=== PATIENT | male | born 1950 | race Caucasian/White ===

== ENCOUNTER → 2017-01-12 | Day surgery (SDC) | payer MEDICARE ==
[~2017-01-12] VITALS: Ht 175.3 cm; Wt 82.0 kg
[~2017-01-12] MED LIST: 0.9% Sodium Chloride 1,000 ML IV PRN; 0.9% Sodium Chloride 1,000 ML IV SCH; ALBU8.5H2 INHALATION; ASPI-973 PO; ATOR80TA PO; NAPR500T5 PO; SCOP1PAT TD; Sodium Chloride LOK Flush 10 mL Syringe IV PRN; UBID30CA20 PO; fentaNYL-PF 50 mCg/mL 2 mL Inj IVPUSH PRN; fentaNYL-PF 50 mCg/mL 2 mL Inj ONE
[2017-01-12 12:12] VITALS: BP 136/91; PULSE 84; RESP 14; O2SAT 99
[2017-01-12 14:09] VITALS: BP 109/59; PULSE 62; RESP 14; O2SAT 96
--- NOTE | 2017-01-12 14:13 | ENDO ---
[address] [address] ENDOSCOPY PROCEDURE PATIENT: DANIEL DAVIES : 1950 MR#: [id number] ADMIT: 01/12/2017 JOB ID: [id number] PRIMARY PROVIDER: Robin Mcclellan MD. PROCEDURE: Colonoscopy with hot snare polypectomy. INDICATIONS: A 66-year-old male with a history of colon polyps returning for surveillance. EQUIPMENT: [employer]. SEDATION: 4 mg Versed, 100 mcg fentanyl. COMPLICATIONS: None identified. BOWEL PREPARATION: Fair. Adequate exam. PROCEDURE INFORMATION: After the risks and benefits were explained, written and verbal informed consent was obtained, the patient was brought into the endoscopy suite and placed into the left lateral decubitus position. Sedation was achieved as above. Digital rectal examination accomplished. Mild internal/external nonbleeding, nonthrombosed hemorrhoids noted. The scope was introduced into the rectum and advanced under direct visualization to the level of the cecum, as identified by the appendiceal orifice and ileocecal valve. The scope was slowly withdrawn to carefully examine the mucosa for any defects or lesions. Multiple direct views were made through the dentate line for exclusion of pathology. The colon was decompressed. The scope removed from the patient who tolerated the procedure well. FINDINGS: Throughout the colon, there were nine polyps seen and removed by way of hot snare. These ranged in size from 5 mm up to about 8 or 9 mm. They were submitted as "colon polyps." ENDOSCOPIC DIAGNOSIS: 1. Multiple colon polyps. 2. Hemorrhoids. RECOMMENDATIONS: 1. Await histopathology. 2. Repeat colonoscopy in three years.
[2017-01-12 14:16] VITALS: BP 137/89; PULSE 69; RESP 14; O2SAT 96
--- NOTE | 2017-01-14 11:37 | PATH ---
SURGICAL PATHOLOGY Attending Physician:Iva Esqueda CASE STATUS: Signed Out PATIENT NAME: DANIEL DAVIES PID: [id number] : 1950 DATE COLLECTED:01/12/2017 00:00 SPECIMEN: Colon, Polyp CLINICAL HISTORY: 1). SIGMOID POLYPS X9 FINAL DIAGNOSIS: 1.SIGMOID POLYPS: TUBULAR ADENOMA, MULTIPLE FRAGMENTS. HYPERPLASTIC POLYP, TWO FRAGMENTS. NINE POLYPS REMOVED. ICD10 D12.5 K63.5 GROSS DESCRIPTION: The specimen is received in one formalin filled container labeled with the patient's name, sublabeled "sigmoid polyps X9" and consists of multiple portions of tissue which aggregate to 1.2 1.0 x 0.3 CM. The specimen is entirely submitted in one cassette. 01/13/2017DC MICRO DESCRIPTION: See diagnosis. ICD-9 CODES: CPT CODES: 1: 35218 Electronically Signed Out Jacki Keller MD [facility] [address], [place] [address] Technical component performed at [facility], [address] [place] [address] Ave[address], [place], [address]
== END | disposition home or self-care (01) ==
LOC: END 01-11 00:05
PROVIDERS: ATTEND Internal Medicine Gastroenterology
DX: Z12.11 Encounter for screening for malignant neoplasm of colon (principal); D12.5 Benign neoplasm of sigmoid colon; K63.5 Polyp of colon; K64.8 Other hemorrhoids; K64.4 Residual hemorrhoidal skin tags; J45.909 Unspecified asthma, uncomplicated; J44.9 Chronic obstructive pulmonary disease, unspecified; E78.00 Pure hypercholesterolemia, unspecified; F17.210 Nicotine dependence, cigarettes, uncomplicated; Z79.51 Long term (current) use of inhaled steroids
CPT/HCPCS: 45385; 99153; G0500; J2250; J3010; J7030